=== PATIENT | male | born 1960 | race Caucasian/White ===

== ENCOUNTER 2021-07-13 16:01 | Emergency (ER) | payer MEDICAID ==
[~2021-07-13] VITALS: Ht 172.7 cm; Wt 59.0 kg
[2021-07-13 16:01] VITALS: BP_SYST 131
[2021-07-13 17:31] LABS: BASOPHILS % (AUTO) 0.2 % (0.0-2.0); EOSINOPHILS # (AUTO) 0.5 K/uL (0.0-0.4); EOSINOPHILS % (AUTO) 5.1 % (0.0-4.0); HEMOGLOBIN 15.8 g/dL (14.0-18.0); LYMPHOCYTES # (AUTO) 2.7 K/uL (1.0-5.5); LYMPHOCYTES % (AUTO) 29.6 % (20.5-51.5); MEAN CORPUSCULAR HEMOGLOBIN 32 pg (27-31); MEAN CORPUSCULAR HGB CONC 34 % (32-36); MEAN CORPUSCULAR VOLUME 92 fL (79.0-98.0); MONOCYTES # (AUTO) 0.8 K/uL (0.0-1.0); MONOCYTES % (AUTO) 8.5 % (1.7-9.3); NEUTROPHILS # (AUTO) 5.1 K/uL (1.8-7.7); NEUTROPHILS % (AUTO) 56.6 % (40.0-70.0); PLATELET COUNT (AUTO) 351 K/uL (130-430); RED BLOOD CELL COUNT(AUTO) 4.99 MIL/uL (4.2-6.2); RED CELL DISTRIBUTION WIDTH 13.4 % (9.0-15.0); WHITE BLOOD COUNT (AUTO) 9.1 K/uL (4.8-10.8)
[2021-07-13 17:40] LABS: CALCIUM 9.2 mg/dL (8.4-11.0); CREATININE 0.62 mg/dL (0.55-1.30); POTASSIUM 3.7 mmol/L (3.5-5.1)
[2021-07-13 17:47] LABS: ALBUMIN 3.3 g/dL (3.4-4.8); TOTAL BILIRUBIN 0.2 mg/dL (0.0-1.0)
--- NOTE | 2021-07-13 22:20 | NUR ---
FEDERICO Montgomery at bedside examining patient.
--- NOTE | 2021-07-13 22:25 | NUR ---
Patient discharged without discharge papers. Patient left with caregiver
== END 2021-07-13 22:25 ==
LOC: SED 16:01
DX: D72.829 Elevated white blood cell count, unspecified (principal)
CPT/HCPCS: 36415; 80053; 85025; 99283

== ENCOUNTER 2023-08-14 07:53 | Inpatient (IN) | payer OTHER, MEDICAID ==
[~2023-08-14] VITALS: Ht 165.1 cm; Wt 65.8 kg
[2023-08-14 07:59] VITALS: BP_SYST 121; PULSE 60; RESP 22; TEMP 98.3; O2SAT 96
[2023-08-14] MEDS ORDERED: CALC-939 PO (08:37)
[2023-08-14] MEDS ORDERED: ASCO500T20 PO (08:37)
[2023-08-14] MEDS ORDERED: MONT-40 PO (08:37)
[2023-08-14] MEDS ORDERED: ACET325T PO (08:37)
[2023-08-14] MEDS ORDERED: FLUT16SP16 NS (08:37)
[2023-08-14] MEDS ORDERED: BACL20TA PO (08:37)
[2023-08-14] MEDS ORDERED: BISA-140 RC (08:37)
[2023-08-14] MEDS ORDERED: [UNRECOGNIZED DRUG - OTHER] PO (08:37)
[2023-08-14] MEDS ORDERED: ASA81 PO (08:37)
[2023-08-14] MEDS ORDERED: VITD2000 PO (08:37)
[2023-08-14] MEDS ORDERED: MAGN400T10 PO (08:37)
[2023-08-14] MEDS ORDERED: IBUP-2018 PO (08:37)
[2023-08-14] MEDS ORDERED: MULT-1089 PO (08:37)
[2023-08-14] MEDS ORDERED: TRAV2.5D OP (08:37)
[2023-08-14] MEDS ORDERED: ICOS1CAP PO (08:37)
[2023-08-14] MEDS ORDERED: POLY17PO4 PO (08:37)
[2023-08-14] MEDS ORDERED: NEU300 PO (08:37)
[2023-08-14] MEDS ORDERED: POLY15DR31 EACH EYE (08:37)
[2023-08-14 09:10] LABS: BASOPHILS % (AUTO) 0.2 % (0.0-2.0); EOSINOPHILS # (AUTO) 0.3 K/uL (0.0-0.4); EOSINOPHILS % (AUTO) 4.5 % (0.0-4.0); HEMATOCRIT 47.7 % (36-54); HEMOGLOBIN 15.7 g/dL (14.0-18.0); LYMPHOCYTES # (AUTO) 2.7 K/uL (1.0-5.5); LYMPHOCYTES % (AUTO) 36.1 % (20.5-51.5); MEAN CORPUSCULAR HEMOGLOBIN 30 pg (27-31); MEAN CORPUSCULAR HGB CONC 33 % (32-36); MEAN CORPUSCULAR VOLUME 92 fL (79.0-98.0); MONOCYTES # (AUTO) 0.6 K/uL (0.0-1.0); MONOCYTES % (AUTO) 7.8 % (1.7-9.3); NEUTROPHILS # (AUTO) 3.9 K/uL (1.8-7.7); NEUTROPHILS % (AUTO) 51.4 % (40.0-70.0); PLATELET COUNT (AUTO) 262 K/uL (130-430); RED BLOOD CELL COUNT(AUTO) 5.16 MIL/uL (4.2-6.2); RED CELL DISTRIBUTION WIDTH 14.1 % (9.0-15.0); WHITE BLOOD COUNT (AUTO) 7.6 K/uL (4.8-10.8)
[2023-08-14 09:21] LABS: INR 1.1 (0.80-1.20); PROTHROMBIN TIME 11.2 SECS (9.5-12.5)
[2023-08-14 09:29] LABS: ANION GAP 10 (5-15); CALCIUM 9.7 mg/dL (8.4-11.0); CARBON DIOXIDE 26 mmol/L (23-29); CHLORIDE 108 mmol/L (98-107); CREATININE 0.53 mg/dL (0.55-1.30); GFR AFRICAN AMERICAN 201 mL/min (>90); GLUCOSE 112 mg/dL (74-106); POTASSIUM 3.7 mmol/L (3.5-5.1); SODIUM SERUM 144 mmol/L (136-145); UREA NITROGEN, BLOOD 10 mg/dL (8-21)
[2023-08-14 09:32] LABS: GFR NON AFRICAN-AMERICAN 166 mL/min (>90)
[2023-08-14 09:34] LABS: ALANINE AMINOTRANSFERASE 87 U/L (12-78); ALBUMIN 3.3 g/dL (3.4-4.8); ASPARTATE AMINOTRANSFERASE 43 U/L (10-37); BILIRUBIN,DIRECT 0.1 mg/dL (0.0-0.3); CREATINE KINASE, TOTAL 46 U/L (39-308); SALICYLATE < 1 mg/dL (3-30); TOTAL BILIRUBIN 0.5 mg/dL (0.0-1.0); TOTAL PROTEIN, SERUM 6.8 g/dL (6.4-8.3)
[2023-08-14 09:35] LABS: ACETAMINOPHEN < 1 ug/mL (1-30)
[2023-08-14 09:36] LABS: ALCOHOL, BLOOD < 3 mg/dL (<10)
[2023-08-14 10:08] LABS: BILIRUBIN,URINE NEGATIVE (NEGATIVE); BLOOD, URINE NEGATIVE (NEGATIVE); CLARITY/URINE CLEAR (CLEAR); COLOR,URINE YELLOW (YELLOW); GLUCOSE,URINE NEGATIVE (NEGATIVE); KETONES,URINE NEGATIVE (NEGATIVE); LEUKOCYTE ESTERASE ,URINE NEGATIVE (NEGATIVE); NITRITE, URINE NEGATIVE (NEGATIVE); PROTEIN URINE NEGATIVE (NEGATIVE); UROBILINOGEN,URINE 0.2 (0.2-1.0)
[2023-08-14] MEDS ORDERED: NACL 0.9% 1,000 ML IV ONE (10:15)
[2023-08-14 10:30] LABS: BARBITURATE, URINE NEGATIVE (NEG <=200); BENZODIAZEPINE, URINE NEGATIVE (NEG <=150); CANNABINOID, URINE NEGATIVE (NEG <=50); COCAINE, URINE NEGATIVE (NEG <=150); METHAMPHETAMINES SCREEN,URINE NEGATIVE (NEG <=500); OPIATE, URINE NEGATIVE (NEG <=100); PHENCYCLIDINE SCREEN,URINE NEGATIVE (NEG <=25); UR TRICYCLIC ANTIDEPRESSANTS POSITIVE (NEG <=300); URINE AMPHETAMINE NEGATIVE (NEG <=500); URINE METHADONE NEGATIVE (NEG <=200); URINE OXYCODONE SCREEN NEGATIVE (NEG <=100)
[2023-08-14 11:59] LABS: ACETONE, SERUM NEGATIVE (NEGATIVE)
[2023-08-14] MEDS ORDERED: ONDANSETRON HCL 4 MG/2 ML VIAL IVP PRN (13:00)
[2023-08-14] MEDS ORDERED: MAGNESIUM SULFATE 50 ML IV PRN (13:00)
[2023-08-14] MEDS ORDERED: ACETAMINOPHEN 325 MG TABLET PO PRN ×2 (13:00→13:15)
[2023-08-14] MEDS ORDERED: DOCUSATE SODIUM 100 MG CAPSULE PO PRN (13:00)
[2023-08-14] MEDS ORDERED: POTASSIUM CHLORIDE 20 MEQ TABLET.ER PO PRN (13:00)
[2023-08-14] MEDS ORDERED: MORPHINE 2 MG/ML INJ. SYRINGE IVP PRN ×2 (13:00)
[2023-08-14] MEDS ORDERED: MUPIROCIN 2% TOPICAL OINTMENT 22 GM NS PRN (13:00)
[2023-08-14 20:00] VITALS: BP_SYST 150; PULSE 109; RESP 18; TEMP 97.9; O2SAT 94
[2023-08-14 20:10] VITALS: BP_SYST 116; PULSE 60; RESP 18; TEMP 97.4
[2023-08-15 06:12] LABS: BASOPHILS # (AUTO) 0.1 K/uL (0.0-0.2); BASOPHILS % (AUTO) 1.1 % (0.0-2.0); EOSINOPHILS # (AUTO) 0.4 K/uL (0.0-0.4); EOSINOPHILS % (AUTO) 4.4 % (0.0-4.0); HEMATOCRIT 48.7 % (36-54); LYMPHOCYTES # (AUTO) 3.1 K/uL (1.0-5.5); LYMPHOCYTES % (AUTO) 38.9 % (20.5-51.5); MEAN CORPUSCULAR HEMOGLOBIN 31 pg (27-31); MEAN CORPUSCULAR HGB CONC 33 % (32-36); MEAN CORPUSCULAR VOLUME 93 fL (79.0-98.0); MONOCYTES # (AUTO) 0.5 K/uL (0.0-1.0); MONOCYTES % (AUTO) 6.6 % (1.7-9.3); PLATELET COUNT (AUTO) 262 K/uL (130-430); RED BLOOD CELL COUNT(AUTO) 5.24 MIL/uL (4.2-6.2); RED CELL DISTRIBUTION WIDTH 14.1 % (9.0-15.0); WHITE BLOOD COUNT (AUTO) 8.1 K/uL (4.8-10.8)
[2023-08-15 06:34] LABS: CALCIUM 9.4 mg/dL (8.4-11.0); CREATININE 0.54 mg/dL (0.55-1.30); POTASSIUM 3.8 mmol/L (3.5-5.1)
[2023-08-15 08:16] VITALS: BP_SYST 144; PULSE 66; RESP 16; TEMP 97.6; O2SAT 96
[2023-08-15] MEDS: ASPIRIN 81 MG TAB.CHEW PO SCH (09:45)
[2023-08-15 16:00] VITALS: BP_SYST 132; RESP 17; TEMP 98; O2SAT 96
[2023-08-15 20:00] VITALS: BP_SYST 150; PULSE 109; RESP 18; TEMP 97.9; O2SAT 96
[2023-08-16 00:10] VITALS: BP_SYST 142; PULSE 75; RESP 16; TEMP 98.8; O2SAT 95
[2023-08-16 07:27] LABS: CALCIUM 9.6 mg/dL (8.4-11.0); CREATININE 0.54 mg/dL (0.55-1.30); POTASSIUM 3.7 mmol/L (3.5-5.1)
[2023-08-16 08:11] LABS: BASOPHILS # (AUTO) 0.1 K/uL (0.0-0.2); BASOPHILS % (AUTO) 0.9 % (0.0-2.0); EOSINOPHILS # (AUTO) 0.1 K/uL (0.0-0.4); HEMATOCRIT 47.9 % (36-54); HEMOGLOBIN 15.9 g/dL (14.0-18.0); MEAN CORPUSCULAR HEMOGLOBIN 30 pg (27-31); MEAN CORPUSCULAR HGB CONC 33 % (32-36); MEAN CORPUSCULAR VOLUME 92 fL (79.0-98.0); MONOCYTES # (AUTO) 1.1 K/uL (0.0-1.0); MONOCYTES % (AUTO) 9.3 % (1.7-9.3); NEUTROPHILS # (AUTO) 8.3 K/uL (1.8-7.7); NEUTROPHILS % (AUTO) 71.8 % (40.0-70.0); PLATELET COUNT (AUTO) 299 K/uL (130-430); RED BLOOD CELL COUNT(AUTO) 5.24 MIL/uL (4.2-6.2); RED CELL DISTRIBUTION WIDTH 13.7 % (9.0-15.0)
[2023-08-16 08:16] LABS: WHITE BLOOD COUNT (AUTO) 11.6 K/uL (4.8-10.8)
[2023-08-16 08:48] VITALS: BP_SYST 151; PULSE 89; RESP 15; TEMP 97.8; O2SAT 98
[2023-08-16] MEDS: ASPIRIN 81 MG TAB.CHEW PO SCH ×2 (10:41→10:42)
[2023-08-16 12:30] VITALS: BP_SYST 142; PULSE 81; RESP 15; TEMP 98.1; O2SAT 97
[2023-08-16 16:45] VITALS: BP_SYST 143; PULSE 84; RESP 15; TEMP 98; O2SAT 97
[2023-08-16 18:46] VITALS: BP_SYST 143; PULSE 84; RESP 15; TEMP 98; O2SAT 97
[2023-08-16 20:00] VITALS: BP_SYST 119; PULSE 64; RESP 20; TEMP 98.5; O2SAT 95
[2023-08-17 00:22] VITALS: O2SAT 95
[2023-08-17 00:24] VITALS: BP_SYST 138; PULSE 110; RESP 21; TEMP 97.6; O2SAT 95
[2023-08-17 03:04] VITALS: BP_SYST 119; PULSE 64; RESP 20; TEMP 98.5; O2SAT 95
[2023-08-17 04:00] VITALS: BP_SYST 114; PULSE 91; RESP 18; TEMP 97.8; O2SAT 94
[2023-08-17 06:44] LABS: BASOPHILS # (AUTO) 0.1 K/uL (0.0-0.2); BASOPHILS % (AUTO) 0.9 % (0.0-2.0); EOSINOPHILS # (AUTO) 0.1 K/uL (0.0-0.4); EOSINOPHILS % (AUTO) 0.3 % (0.0-4.0); HEMATOCRIT 52.3 % (36-54); HEMOGLOBIN 17.2 g/dL (14.0-18.0); LYMPHOCYTES # (AUTO) 2.3 K/uL (1.0-5.5); LYMPHOCYTES % (AUTO) 14.5 % (20.5-51.5); MEAN CORPUSCULAR HEMOGLOBIN 30 pg (27-31); MEAN CORPUSCULAR HGB CONC 33 % (32-36); MEAN CORPUSCULAR VOLUME 92 fL (79.0-98.0); MONOCYTES # (AUTO) 1.7 K/uL (0.0-1.0); MONOCYTES % (AUTO) 10.7 % (1.7-9.3); NEUTROPHILS # (AUTO) 11.8 K/uL (1.8-7.7); NEUTROPHILS % (AUTO) 73.6 % (40.0-70.0); PLATELET COUNT (AUTO) 284 K/uL (130-430); RED BLOOD CELL COUNT(AUTO) 5.68 MIL/uL (4.2-6.2); RED CELL DISTRIBUTION WIDTH 13.9 % (9.0-15.0)
[2023-08-17 06:59] LABS: CALCIUM 9.6 mg/dL (8.4-11.0); CREATININE 0.54 mg/dL (0.55-1.30); POTASSIUM 3.8 mmol/L (3.5-5.1)
[2023-08-17 07:51] VITALS: BP_SYST 126; PULSE 95; RESP 16; TEMP 97.8; O2SAT 97
[2023-08-17] MEDS: ASPIRIN 81 MG TAB.CHEW PO SCH (10:30)
== END 2023-08-17 16:05 | DRG 92 ==
LOC: SED 07:53 → STU 12:44
PROVIDERS: ADMIT Family Medicine; ATTEND Family Medicine
DX: G92.8 Other toxic encephalopathy (principal); E44.1 Mild protein-calorie malnutrition; R65.10 Systemic inflammatory response syndrome (SIRS) of non-infectious origin without acute organ dysfunction; Z68.24 Body mass index [BMI] 24.0-24.9, adult; R22.0 Localized swelling, mass and lump, head; G80.9 Cerebral palsy, unspecified; T50.915A Adverse effect of multiple unspecified drugs, medicaments and biological substances, initial encounter
CPT/HCPCS: 36415; 70450-TC; 71045; 76376; 80048; 80076; 80307; 81001; 81003; 82009; 82140; 82550; 83605; 83735; 83880; 84484; 85025; 85610-TC; 85730-TC; 87040; 93005; 96360; 99285; G0378; G0480; G0481; G0482